=== PATIENT | female | born 1975 | race Asian ===

== ENCOUNTER 2017-01-18 05:07 | Day surgery (SDC) | payer BC ==
[2017-01-17 14:18] VITALS: BMI 21.1
--- NOTE | 2017-01-18 10:08 | HP ---
Past Medical History - Primary Care Physician PCP:: Avtar Stokes - Admission Chief Complaint: menorrhagia, EM polyp, voluntary sterlization History of Present Illness: 41 yo f with hx of heavy menses ,sono showed EM polyp , also requesting bilateral tubal ligation, aware procedure has risk of infection, bleeding, injury tosurrounding tissue and anesthesia riskand post op complication and small failure rish and risk of ectopic. History Source: Patient Limitations to Obtaining History: No Limitations - Past Medical History ...: 3 ...Para: 3 - Past Surgical History Hx Myomectomy: No Hx Transabdominal Cerclage: No - Smoking History Smoking history: Never smoked Have you smoked in the past 12 months: No - Alcohol/Substance Use Hx Alcohol Use: No - Social History History of Recent Travel: No Home Medications - Allergies Allergies/Adverse Reactions: Allergies Allergy/AdvReac Type Severity Reaction Status Date / Time Penicillins Allergy Rash Verified 01/17/17 14:12 - Home Medications Home Medications: Ambulatory Orders NK [No Known Home Medication] 01/17/17 Review of Systems - Review of Systems Constitutional: reports: No Symptoms Eyes: reports: No Symptoms HENT: reports: No Symptoms Neck: reports: No Symptoms Cardiovascular: reports: No Symptoms Respiratory: reports: No Symptoms Gastrointestinal: reports: No Symptoms Genitourinary: reports: Vaginal Bleeding Breasts: reports: No Symptoms Reported Musculoskeletal: reports: No Symptoms Integumentary: reports: No Symptoms Neurological: reports: No Symptoms Psychiatric: reports: No Symptoms Physical Exam-[employer] Constitutional: Yes: Well Nourished, No Distress, Calm Eyes: Yes: WNL, Conjunctiva Clear, EOM Intact HENT: Yes: WNL, Atraumatic, Normocephalic Neck: Yes: WNL, Supple, Trachea Midline Cardiovascular: Yes: WNL, Regular Rate and Rhythm Respiratory: Yes: WNL, Regular, CTA Bilaterally Gastrointestinal: Yes: WNL ...Rectal Exam: Yes: WNL Renal/: Yes: WNL Pelvis: Yes: WNL External Genitalia: Yes: Normal Internal Exam Deferred: No Vaginal Exam: Yes: Normal Cervix: Yes: Normal Uterus: Yes: Enlarged, Lumpy (fibroid uterus) Breast(s): Yes: WNL Musculoskeletal: Yes: WNL Extremities: Yes: WNL Edema: No Integumentary: Yes: WNL Neurological: Yes: WNL, Alert, Oriented ...Motor Strength: WNL Psychiatric: Yes: WNL, Alert, Oriented Problem List - Problem (1) Metrorrhagia Code(s): N92.1 - EXCESSIVE AND FREQUENT MENSTRUATION WITH IRREGULAR CYCLE (2) Endometrial polyp Code(s): N84.0 - POLYP OF CORPUS UTERI (3) Admission for sterilization Code(s): Z30.2 - ENCOUNTER FOR STERILIZATION Assessment/Plan hysterooscopy, D&C , endometrial polypectomy,laparoscopiv bilateral tubal ligation
[2017-01-18] MEDS ORDERED: LIDOCAINE HCL 2% (20ML MULTI-DOSE VIAL) NR ONE (12:11)
[2017-01-18] MEDS ORDERED: DEXAMETHASONE SOD PHOSPHATE 4 MG/1 ML VIAL ONE (12:11)
[2017-01-18] MEDS ORDERED: PROPOFOL 20 ML ONE (12:11)
[2017-01-18] MEDS ORDERED: MIDAZOLAM HCL 2 MG/2 ML SINGLE DOSE VIAL ONE (12:12)
[2017-01-18] MEDS ORDERED: ROCURONIUM BROMIDE 50 MG/5 ML VIAL ONE (12:12)
[2017-01-18] MEDS ORDERED: GLYCOPYRROLATE 0.2 MG/1 ML VIAL ONE (12:53)
[2017-01-18] MEDS ORDERED: NEOSTIGMINE METHYLSULFATE 0.5 MG/ML - 10 ML MDV ONE (12:53)
[2017-01-18] MEDS ORDERED: ONDANSETRON 4 MG/2 ML VIAL IVPUSH PRN (13:12)
[2017-01-18] MEDS ORDERED: oxyCODONE HCL 5 MG TABLET PO PRN ×2 (13:12→13:48)
[2017-01-18] MEDS ORDERED: LACTATED RINGERS SOLUTION 1,000 ML IV SCH (13:15)
[2017-01-18] MEDS ORDERED: ONDANSETRON 4 MG/2 ML VIAL IVPB PRN (13:48)
[2017-01-18] MEDS ORDERED: IBUPROFEN 800 MG/8 ML IJ IVPB PRN (13:48)
[2017-01-18] MEDS ORDERED: IBUPROFEN 600 MG TABLET (FP) PO PRN (13:48)
[2017-01-18] MEDS ORDERED: ELECTROLYTE-148 SOLN 1,000 ML IV SCH (14:00)
[2017-01-18 15:23] VITALS: TEMP 97.6
[2017-01-18 16:40] VITALS: BP 110/75; PULSE 82
--- NOTE | 2017-01-19 13:52 | OP ---
DATE OF OPERATION: 01/18/2017 PREOPERATIVE DIAGNOSIS: Menorrhagia, endometrial polyp, fibroid uterus, and voluntary sterilization. POSTOPERATIVE DIAGNOSIS: Menorrhagia, endometrial polyp, fibroid uterus, and voluntary sterilization. PROCEDURE: Hysteroscopy, dilatation and curettage, polypectomy, and laparoscopic bilateral tubal cauterization. SURGEON: Avtar Stokes MD ANESTHESIA: General. ANESTHESIOLOGIST: Tomas Mason MD ESTIMATED BLOOD LOSS: 20 mL. OPERATION: Patient was taken to the operating room under adequate general anesthesia in dorsal lithotomy position. Examination under anesthesia revealed external genitalia to be normal. Vagina was normal. Cervix was clean, no lesion. Uterus was enlarged, irregular, with multiple fibroids. Adnexa, no masses were palpable. Then, with a weighted speculum in the vagina, anterior lip of the cervix was grasped with a single-tooth tenaculum. Endocervical curetting was done. Uterine cavity was sounded to 10 cm. Then, cervix was slightly dilated, and hysteroscope was introduced. The position of endocervical canal appeared to be normal. Endometrium was irregular with three small polyps seen. No submucous myoma was seen. Then, both cornual region was identified. No other abnormality was noted. Then, hysteroscope was withdrawn. Polyps were removed. Then, dilatation and curettage was done, and specimen was sent together for the pathology. Then, Amador was inserted and Hulka was introduced for manipulation of the uterus. Then, small infraumbilical skin incision was made. Veress needle was introduced. Pneumoperitoneum was established. A 5-mm trocar was introduced. Scope was introduced. Visualization at the upper abdomen showed to be normal. Uterus was irregular with multiple myoma. Both ovaries and the tubes looked normal. Cul-de-sac was normal. No adhesions. Then, under direct vision, a 5-mm trocar was introduced through the suprapubic area, and then bipolar cautery was introduced. Then, right tube was cauterized in 3 portions 2 cm apart. The same procedure repeated for opposite tube. No active bleeding was seen. Then, abdomen was emptied of gases, suprapubic and infraumbilical skin incisions were closed with interrupted suture of 3-0 Biosyn, and then the skin was closed with Dermabond glue. Patient tolerated the procedure well, left the OR in good condition. AVTAR STOKES M.D. [id number]
--- NOTE | 2017-01-20 14:55 | PATH ---
Surgical Pathology Report Patient Name: STEPH NUR [facility]. Rec. #: [id number] /Age/Gender: 1975 (Age: 41) / F Account: [id number] Location: [facility] SURGICAL Taken: 01/18/2017 Received: 01/19/2017 Reported: 01/20/2017 Physicians: Avtar Stokes M.D. Specimen(s) Received A: ENDOCERVICAL CURETTINGS B: ENDOMETRIAL CURETTINGS Clinical History Voluntary sterilization Polyp of corpus uteri Final Diagnosis A. ENDOCERVIX, CURETTING: ENDOCERVICAL MUCOSA WITH ACUTE AND CHRONIC INFLAMMATION AND REACTIVE CHANGES. PORTIONS OF SECRETORY ENDOMETRIUM PRESENT. B. ENDOMETRIUM, CURETTING AND POLYPECTOMY: SECRETORY ENDOMETRIUM, AND PORTIONS OF BENIGN ENDOMETRIAL POLYP. Electronically Signed Brett Warren M.D. Gross Description A. Received in formalin labeled "endocervical curetting," is a 2.2 x 1.4 x 0.3 cm aggregate of wong-brown soft tissue fragments. The formalin is filtered and the specimen is entirely submitted in one cassette. B. Received in formalin labeled "endometrial and polyp," is a 4.0 x 3.3 x 0.3 cm aggregate of wong-brown soft tissue fragments. The formalin is filtered and the specimen is entirely submitted in 3 cassettes. 01/19/201701/19/2017
== END 2017-01-18 16:40 | disposition home or self-care (01) ==
LOC: JASU-SURG 05:07
PROVIDERS: ATTEND Obstetrics & Gynecology
PROC: 0UB98ZX Excision of Uterus, Via Natural or Artificial Opening Endoscopic, Diagnostic (ICD-10-PCS; principal; 2017-01-18 11:00)
PROC: 0UDB8ZX Extraction of Endometrium, Via Natural or Artificial Opening Endoscopic, Diagnostic (ICD-10-PCS; 2017-01-18 11:00)
PROC: 0U574ZZ Destruction of Bilateral Fallopian Tubes, Percutaneous Endoscopic Approach (ICD-10-PCS; 2017-01-18 11:00)
DX: N92.0 Excessive and frequent menstruation with regular cycle (principal); N84.0 Polyp of corpus uteri; D25.9 Leiomyoma of uterus, unspecified; Z30.2 Encounter for sterilization
CPT/HCPCS: 88305-TC; 94760